=== PATIENT | female | born 1980 | race Caucasian/White ===

== ENCOUNTER → 2024-02-22 14:44 | Outpatient (REF) | payer OTHER, SELFPAY | LOC: HWRCS 14:44 | PROVIDERS: ATTENDING PHYSICIAN Nurse Practitioner | DX: I10 Essential (primary) hypertension (principal) | CPT/HCPCS: 93306 ==

== ENCOUNTER 2024-05-11 11:31 | Emergency (ER) | payer OTHER, SELFPAY ==
[2024-05-11 11:33] VITALS: BP 176/102
--- NOTE | 2024-05-11 12:37 | ED.GENMED ---
History of Present Illness
General
Chief Complaint: Blood Pressure Problem
Source: patient
Exam Limitations: none
Time Seen by Provider: 05/11/24 12:37
History of Present Illness
History of Present Illness:
Patient is a 44-year-old woman with history of hypertension on [address] Herndon cardiology presenting to the emergency department with high blood pressure and an ear problem. Patient states for the past 2 days has been under
extreme stress and has been nauseous. Because of the nausea she has not been taking her antihypertensives. She states that her blood pressure has been very well-controlled up until today when she went to an urgent care. She went to an urgent care
for ear problem. There her blood pressure was 220/150. She had an EKG done which did show diffuse T wave inversions. Patient states that her ear has been bothering her for the past week. She denies any swimming or travel. States that the ear
has been sore. Denies any fevers or chills. No headache. No dizziness. Does state that her ear is muffled hearing. No headache. No numbness tingling. No chest pain or shortness of breath. No leg swelling. She did take her blood pressure
medication after the visit and it did improve.
Past History
Past History
ED Past Medical History: Psychiatric
ED Past Surgical History: Orthopedic
Social History
Tobacco: Non-smoker
Alcohol: None
Drug: None
Employment: Employed
Phy Exam
Physical Exam
Physical Exam:
GENERAL: in no acute distress
HEENT: normocephalic, extraocular movements intact, left ear with some pain with movement of the pinna, erythematous ear canal with some mild bulging of the TM, no purulent drainage or obvious abscess, some dried blood in the ear canal moist oral
mucosa
NECK: normal inspection
RESPIRATORY: no respiratory distress, clear to auscultation bilaterally
CARDIOVASCULAR: regular rate and rhythm
ABDOMEN/: soft, non-distended, non-tender to palpation, no rebound or guarding
EXTREMITIES: non-tender, no edema/swelling
NEUROLOGIC: awake and alert, moves all extremities
SKIN: warm
Course
Orders/Labs/Results
Orders:
Orders
05/11/24 13:01
Electrocardiogram (*1) Stat
Reason for Study: Other
Other Reason for Exam: chest pain
EKG- Treatment ONCE
05/11/24 13:02
Beta Hcg Urine Qualitative Screen [HCG, Urine Qualitative Screen] Urgent
Urinalysis Reflex To Culture Urgent
Test Result ONCE
05/11/24 13:37
Basic Metabolic Panel Urgent
Complete Blood Count/With Diff Urgent
HCG, Serum Qualitative Screen Urgent
Comment: HCG QUALITATIVE ADDED ON BY FLOOR 3PM 05-11-24
Troponin I Urgent
05/11/24 14:54
Add On- LAB Urgent
Tests Added?: hcg qualitiatve
05/11/24 15:00
HydrOXYZINE [Atarax] 10 mg PO NOW STA
05/11/24 15:46
Troponin I Routine
Abnormal Lab Results
05/11/24
13:37
MCV 80.6 L fL
(81.0-99.0)
Abs Immat Gran (auto) 0.1 H 10^3/uL
(0-0.05)
Absolute Neuts (auto) 6.7 H 10^3/uL
(1.4-6.5)
Absolute Monos (auto) 1.1 H 10^3/uL
(0.1-0.6)
Absolute Eos (auto) 1.0 H 10^3/uL
(0-0.7)
Lymphocytes % 16.8 L %
(20.5-51.1)
Monocytes % 10.4 H %
(1.7-9.3)
Eosinophils % 8.9 H %
(0-6)
05/11/24 13:37
05/11/24 13:37
Vital Signs
Initial and Last Documented VS:
Initial Vital Signs
Temp Pulse Resp BP Pulse Ox
98.1 F 77 16 176/102 96
05/11/24 11:33 05/11/24 11:33 05/11/24 11:33 05/11/24 11:33 05/11/24 11:33
Last Documented Vital Signs
Temp Pulse Resp BP Pulse Ox
98.1 F 77 18 139/84 96
05/11/24 11:33 05/11/24 11:33 05/11/24 12:40 05/11/24 12:40 05/11/24 11:33
MDM/Problems Addressed
Differential Diagnosis Includes:
Patient is a 44-year-old woman with history of hypertension presenting to the emergency department with elevated blood pressure that is now resolved as well as an ear problem. Vitals here are notable for elevated blood pressure initially though
improved after she took her antihypertensives. Exam does show erythema and painful range of motion of the left pinna as well as some mild bulging of the TM. Regarding the high blood pressure she is currently asymptomatic without any confusion
chest pain dysuria vision changes focal neurodeficits or shortness of breath. History and exam not consistent with hypertensive emergency. Given the EKG changes at urgent care we will check blood work including CBC BMP troponin urine preg and
repeat EKG here. Regarding the ear it does appear to have components of both EXTR externa as well as otitis media. Will treat with antibiotic.
Chronic conditions affecting care: HTN and Psychiatric illness
Acute Exacerbation and/or Progression of Chronic Illness: HTN
*Critical Care Note
Total Time (30-74mins, 75-104mins- exclusive of procedures): Not Applicable
Update Note
Update Note:
Labs showed unremarkable CBC and BMP
EKG as interpreted by me: T wave inversions laterally and ST changes inferiorly which are new
I discussed the case with cardiology who recommended delta troponin and if unremarkable discharge with cardiology follow-up
Repeat troponin negative. Patient still asymptomatic so will discharge with cardiology follow-up. Will discharge with amoxicillin as well as Ciprodex drops.
Results of workup were discussed with patient. All questions were answered at this time. Strict return precautions were given, which patient indicated understanding. Recommended follow up with PCP [specialist]. Patient is comfortable with discharge
planning and medically stable for discharge.
ED Attending Note
-
Portions of this chart may have been created with voice recognition software.� Occasional wrong word or��sound alike� substitutions may have occurred due to the inherent limitations of voice recognition software.
Discharge Plan
Departure
Patient Disposition: Home (Routine Discharge)
Date of Disposition: 05/11/24
Time of Disposition: 16:27
Patient with high blood pressure during this ER visit?: Yes
Discharge Problem:
Otitis media, Otitis externa, Nonspecific ST-T wave electrocardiographic changes
Instructions: BLOOD PRESSURE
Prescriptions:
New
amoxicillin 875 mg tablet
875 mg PO BID 5 Days Qty: 10 0RF
ciprofloxacin-dexamethasone 0.3-0.1 % drops,suspension
4 drp otic (ear) BID 7 Days Qty: 7.5 0RF
No Action
labetalol 100 MG tablet
200 mg PO BID
lisinopril 20 mg Tablet
20 mg PO DAILY
Referrals:
NONE,* [Family Provider] -
Activity Restrictions/Additional Instructions:
you were seen in the Emergency Department today for elevated blood pressure as well as an ear infection. While you were here we performed blood work, which was reassuring. Your EKG did have some changes so please call Dr. Herndon for follow-up for an
outpatient stress test. I did prescribe you antibiotics for your ear infection.
We would like for you to follow up with your primary care physicia in addition to the visitor services associate for further evaluation. If you experience fever, worsening of your symptoms, or develop any other new or concerning symptoms, please return to the
Emergency Department immediately.
Please see the attached sheet for additional information.
Interventions
Interventions:
*Risk Screen - Suicide Last Done: 05/11/24 11:33
*General Assessment Last Done: 05/11/24 12:34
*Neglect/Abuse Screening Last Done: 05/11/24 11:33
ED- Fall Risk Assessment Last Done: 05/11/24 12:34
*ED COVID-19 Vaccine History Last Done: 05/11/24 12:34
ED- Cardiac Assessment Last Done: 05/11/24 14:58
ED- Neurological Assessment Last Done: 05/11/24 14:58
ED- Pulmonary Assessment Last Done: 05/11/24 14:58
Discharge Date and Time
Print Language: [place]
[2024-05-11 12:40] VITALS: BP 139/84
[2024-05-11 13:54] LABS: % Basophils 0.9 % (0-2); % Eosinophils 8.9 % (0-6); % Immature Granulocytes 0.5 % (0-0.5); % Lymphocytes 16.8 % (20.5-51.1); % Monocytes 10.4 % (1.7-9.3); % Neutrophils 62.5 % (42.2-75.2); Absolute Basophils 0.1 10^3/uL (0-0.2); Absolute Immature Granulocytes 0.1 10^3/uL (0-0.05); Absolute Lymphocytes 1.8 10^3/uL (1.2-3.4); Absolute Monocytes 1.1 10^3/uL (0.1-0.6); Absolute Neutrophils 6.7 10^3/uL (1.4-6.5); Hemoglobin 13.5 g/dL (12.0-16.0); Mean Corp Hgb Conc. 34.6 g/dL (33.0-37.0); Mean Corpuscular Hgb 27.9 pg (27.0-31.0); Mean Corpuscular Volume 80.6 fL (81.0-99.0); Mean Platelet Volume 9.5 fL (7.4-10.4); Nucleated Red Blood Cells % 0 %; Platelet Count 375 10^3/uL (130-400); Red Blood Cell Count 4.84 10^6/uL (4.20-5.40); Red Cell Dist. Width 14.1 % (11.5-14.5); White Blood Cell Count 10.7 10^3/uL (4.8-10.8)
[2024-05-11 14:11] LABS: Blood Urea Nitrogen 13 mg/dl (7-17); Calcium 9.7 mg/dl (8.4-10.2); Carbon Dioxide 26 mmol/L (22-30); Chloride 105 mmol/L (98-107); Glucose 96 mg/dl (70-99); Potassium 4.2 mmol/L (3.5-5.1); Sodium 137 mmol/L (135-145); eGFR > 60.00
[2024-05-11 14:20] LABS: Troponin I < 0.012 ng/ml
[2024-05-11] MEDS: ATARAX 10 MG PO (15:06)
[2024-05-11 15:37] LABS: HCG, Serum Qualitative Screen Negative
[2024-05-11 16:21] LABS: Troponin I < 0.012 ng/ml
--- NOTE | 2024-05-11 16:32 | ED.GENMED ---
History of Present Illness
General
Chief Complaint: Blood Pressure Problem
Time Seen by Provider: 05/11/24 12:37
Past History
Past History
ED Past Medical History: Psychiatric
ED Past Surgical History: Orthopedic
Social History
Tobacco: Non-smoker
Alcohol: None
Drug: None
Employment: Employed
Course
Orders/Labs/Results
Orders:
Orders
05/11/24 13:01
Electrocardiogram (*1) Stat
Reason for Study: Other
Other Reason for Exam: chest pain
EKG- Treatment ONCE
05/11/24 13:02
Test Result ONCE
05/11/24 13:37
Basic Metabolic Panel Urgent
Complete Blood Count/With Diff Urgent
HCG, Serum Qualitative Screen Urgent
Comment: HCG QUALITATIVE ADDED ON BY FLOOR 3PM 05-11-24
Troponin I Urgent
05/11/24 14:54
Add On- LAB Urgent
Tests Added?: hcg qualitiatve
05/11/24 15:00
HydrOXYZINE [Atarax] 10 mg PO NOW STA
05/11/24 15:46
Troponin I Routine
Abnormal Lab Results
05/11/24
13:37
MCV 80.6 L fL
(81.0-99.0)
Abs Immat Gran (auto) 0.1 H 10^3/uL
(0-0.05)
Absolute Neuts (auto) 6.7 H 10^3/uL
(1.4-6.5)
Absolute Monos (auto) 1.1 H 10^3/uL
(0.1-0.6)
Absolute Eos (auto) 1.0 H 10^3/uL
(0-0.7)
Lymphocytes % 16.8 L %
(20.5-51.1)
Monocytes % 10.4 H %
(1.7-9.3)
Eosinophils % 8.9 H %
(0-6)
05/11/24 13:37
05/11/24 13:37
Vital Signs
Initial and Last Documented VS:
Initial Vital Signs
Temp Pulse Resp BP Pulse Ox
98.1 F 77 16 176/102 96
05/11/24 11:33 05/11/24 11:33 05/11/24 11:33 05/11/24 11:33 05/11/24 11:33
Last Documented Vital Signs
Temp Pulse Resp BP Pulse Ox
98.1 F 77 18 139/84 96
05/11/24 11:33 05/11/24 11:33 05/11/24 12:40 05/11/24 12:40 05/11/24 11:33
ED Attending Note
-
Portions of this chart may have been created with voice recognition software.� Occasional wrong word or��sound alike� substitutions may have occurred due to the inherent limitations of voice recognition software.
Discharge Plan
Departure
Patient Disposition: Home (Routine Discharge)
Date of Disposition: 05/11/24
Time of Disposition: 16:27
Patient with high blood pressure during this ER visit?: Yes
Discharge Problem:
Otitis media, Otitis externa, Nonspecific ST-T wave electrocardiographic changes
Instructions: BLOOD PRESSURE
Prescriptions:
New
amoxicillin 875 mg tablet
875 mg PO BID 5 Days Qty: 10 0RF
ciprofloxacin-dexamethasone 0.3-0.1 % drops,suspension
4 drp otic (ear) BID 7 Days Qty: 7.5 0RF
No Action
labetalol 100 MG tablet
200 mg PO BID
lisinopril 20 mg Tablet
20 mg PO DAILY
Referrals:
NONE,* [Family Provider] -
Activity Restrictions/Additional Instructions:
you were seen in the Emergency Department today for elevated blood pressure as well as an ear infection. While you were here we performed blood work, which was reassuring. Your EKG did have some changes so please call Dr. Herndon for follow-up for an
outpatient stress test. I did prescribe you antibiotics for your ear infection.
We would like for you to follow up with your primary care physicia in addition to the electronic semiconductor processor for further evaluation. If you experience fever, worsening of your symptoms, or develop any other new or concerning symptoms, please return to the
Emergency Department immediately.
Please see the attached sheet for additional information.
Interventions
Interventions:
*Risk Screen - Suicide Last Done: 05/11/24 11:33
*General Assessment Last Done: 05/11/24 12:34
*Neglect/Abuse Screening Last Done: 05/11/24 11:33
ED- Fall Risk Assessment Last Done: 05/11/24 12:34
*ED COVID-19 Vaccine History Last Done: 05/11/24 12:34
*Nursing Disposition Last Done: 05/11/24 17:05
ED- Cardiac Assessment Last Done: 05/11/24 14:58
ED- Neurological Assessment Last Done: 05/11/24 14:58
ED- Pulmonary Assessment Last Done: 05/11/24 14:58
Discharge Date and Time
Discharge Date/Time: 05/11/24 17:05
Print Language: CHADIAN
== END 2024-05-11 17:05 | disposition home or self-care (01) ==
LOC: EMR 11:31
PROVIDERS: EMERGENCY PHYSICIAN Student in an Organized Health Care Education/Training Program
DX: H60.92 Unspecified otitis externa, left ear (principal); H66.92 Otitis media, unspecified, left ear; I10 Essential (primary) hypertension; R94.31 Abnormal electrocardiogram [ECG] [EKG]
CPT/HCPCS: 99283; 80048; 84484; 84703; 85025; 93005

== ENCOUNTER → 2025-01-29 08:30 | Outpatient (REF) | payer OTHER, SELFPAY | LOC: HWWDC 08:30 | PROVIDERS: ATTENDING PHYSICIAN Family Medicine | DX: Z12.31 Encounter for screening mammogram for malignant neoplasm of breast (principal) | CPT/HCPCS: 77063; 77067 ==

== ENCOUNTER → 2025-02-09 10:01 | Outpatient (REF) | payer OTHER, SELFPAY | LOC: WDC 10:01 | PROVIDERS: ATTENDING PHYSICIAN Family Medicine | DX: R92.8 Other abnormal and inconclusive findings on diagnostic imaging of breast (principal) | CPT/HCPCS: 77065 ==

== ENCOUNTER → 2025-02-15 06:29 | Outpatient (REF) | payer OTHER, SELFPAY ==
--- NOTE | 2025-02-15 09:07 | OID.BR.INTR ---
[facility] Breast Navigator - Initial
- -
Date of Contact: 02/15/25
Met with patient. Patient given written information on navigator services available at [facility]. Will follow up as needed per protocol.
== END ==
LOC: WDC 06:29
PROVIDERS: ATTENDING PHYSICIAN Family Medicine
DX: R92.1 Mammographic calcification found on diagnostic imaging of breast (principal)
CPT/HCPCS: 88305; 19081; 76098; A4648